=== PATIENT | male | born 1960 | race Two or more races ===

== ENCOUNTER → 2016-04-19 | Outpatient (CLI) | payer OTHER ==
--- NOTE | 2016-04-19 18:53 | DX ---
Lumbar spine, 4 views , including lateral flexion and extension views. 04/19/2016 History: Back pain. Comparison examination: MRI lumbar spine August 06, 2015. Findings: Features of degenerative disk disease with intervertebral disk height loss are identified a t L3-L4, L4-L5, L5-S1. No fracture or subluxation. No features of instability on lateral flexion and extension positioning. Impression: Lower lumbar degenerative disk disease.
== END ==
LOC: FIMAGING 09:45
PROVIDERS: ATTEND Neurological Surgery
DX: M51.36 Other intervertebral disc degeneration, lumbar region (principal)

== ENCOUNTER → 2016-12-05 | Outpatient (CLI) | payer OTHER | LOC: FIMAGING 17:03 | PROVIDERS: ATTEND Physician Assistant Surgical | DX: M79.662 Pain in left lower leg (principal); M51.26 Other intervertebral disc displacement, lumbar region; M43.26 Fusion of spine, lumbar region ==

== ENCOUNTER 2017-11-09 12:52 | Emergency (ER) | payer OTHER ==
--- NOTE | 2017-11-09 13:08 | EDPHY ---
H & P Time Seen by Provider: 11/09/17 13:03 HPI/ROS: Chief Complaint: Shortness of breath HPI: 57-year-old male began having shortness of breath last night. Patient states that he was recently seen by his doctor for left foot swelling earlier this week. They were concerned about a possible DV T. He is scheduled for an ultrasound later today. Last night he had a sudden onset of shortness of breath. No cough. No fevers or chills. Some pain with deep inspiration. No family history of DVT in the past. He does have a history of hyperlipidemia. He does smoke. No recent travel. ROS: 10 systems were reviewed and were negative except those elements noted in the HPI. PMH: Hypertension Social History: Positive smoking, positive alcohol, no recreational drug use Family History: Diabetes Physical Exam: Vital signs: Heart rate 142, blood pressure 115/99, respiratory rate 30, oxygen saturation 68% on room air, temperature Gen: Awake, Alert, significant respiratory distress HEENT: Nose: no rhinorrhea Eyes: PERRLA, EOMI Mouth: Moist mucosa Neck: Supple, no JVD Chest: nontender, lungs clear to auscultation Heart: S1, S2 normal, no murmur Abd: Soft, non-tender, no guarding Back: no CVA tenderness, no midline tenderness Ext: Mild left foot edema, non-tender Skin: no rash Neuro: CN II-XII intact, Sensation grossly intact, Strength 5/5 in bilateral upper and lower extremities - Social History Smoking Status: Heavy smoker Constitutional: Initial Vital Signs Temperature (C) 36.9 C 11/09/17 12:55 Heart Rate 147 H 11/09/17 12:55 Respiratory Rate 45 H 11/09/17 12:55 Blood Pressure 162/81 H 11/09/17 12:55 O2 Sat (%) 68 L 11/09/17 12:55 O2 Delivery Mode Non-Rebreather Mask O2 (L/minute) 15 Allergies/Adverse Reactions: No Known Allergies Allergy (Unverified 11/09/17 13:01) Home Medications: Medication Instructions Recorded Gabapentin 11/09/17 Lisinopril 11/09/17 Medical Decision Making - Diagnostics EKG Interpretation: ECG time 12:59 p.m., sinus tachycardia with a rate of 142, normal axis, normal intervals, findings consistent with left atrial enlargement, there are Q-waves from V1 through V4 consistent with an age indeterminate anteroseptal infarct. There are no acute ST or T-wave changes. Imaging Results: Imaging Impressions Chest/Thorax CTA 11/09/17 13:04 Impression: 1. No evidence of thrombopulmonary embolic disease. 2. Diffuse pneumonitis may be manifestation of viral pneumonitis, exposure, or drug toxicity. Recommend follow-up noncontrast chest CT in 6 months to assure resolution of nodular opacity left lung apex. 3. Suspect reactive lymphadenopathy throughout the mediastinum and pulmonary sonia. 4. Three-vessel calcified coronary plaque. Findings discussed with Emergency Department physician, Souleymane Hager MD, on 11/09/2017, 13:44. ED Course/Re-evaluation: 57-year-old male presenting with acute onset of shortness of breath last night tachycardia hypoxemia with leg pain and swelling currently being worked up for DV T. Will get a CT scan of his chest to rule out PE at this time. Oxygen saturations have come up on a non-rebreather. He is not febrile at this time. CT scan results noted. No evidence of P E. Does have a diffuse pneumonitis. White count is 15. He does meet SIRS criteria. I have ordered a lactic acid. I have also ordered blood cultures and 1 g of ceftriaxone I V. The patient is requesting to be transferred to [facility]. I have paged the hospitalist at [facility]. Case discussed with Dr. Fuchs, hospitalist at [facility]. He is accept the patient transfer to the ICU. Critical Care Time: I spent a total of 35 minutes of critical care time in obtaining history, performing a physical exam, bedside monitoring of interventions, collecting and interpreting tests and discussion with consultants but not including time spent performing procedures. - Data Points Laboratory Results: 11/09/17 11/09/17 11/09/17 13:50 13:47 13:05 POC Sodium 123 mEq/L L mEq/L (135-145) POC Potassium 4.5 mEq/L mEq/L (3.3-5.0) POC Chloride 101.0 mEq/L mEq/L (97-110) POC Total CO2 17 mEq/L L mEq/L (22-31) POC BUN 11 mg/dL mg/dL (7-23) POC Creatinine 0.9 mg/dL mg/dL (0.7-1.3) POC Glucose 137 mg/dL H mg/dL (70-100) POC Lactic Acid Aditya 1.0 mmol/L mmol/L (0.7-2.1) POC Calcium 8.5 mg/dL mg/dL (8.5-10.4) POC Total Bilirubin 1.4 mg/dL mg/dL (0.1-1.4) POC AST 58 IU/L IU/L (17-59) POC ALT 50 IU/L IU/L (21-72) POC Alk Phosphatase 86 IU/L IU/L (38-126) POC Troponin I 0.03 ng/mL ng/mL (0.00-0.08) POC Total Protein 7.7 g/dL g/dL (6.3-8.2) POC Albumin 3.8 g/dL g/dL (3.5-5.0) Medications Given: Discontinued Medications Ceftriaxone Sodium/Dextrose (Rocephin 1 Gm (Premix)) 50 mls @ 100 mls/hr IV EDNOW ONE PRN Reason: Protocol Stop: 11/09/17 14:18 Last Admin: 11/09/17 14:02 Dose: 50 mls Sodium Chloride (Ns) 1,000 mls @ 0 mls/hr IV EDNOW ONE; Wide Open PRN Reason: Protocol Stop: 11/09/17 13:55 Last Admin: 11/09/17 13:55 Dose: 1,000 mls Point of Care Test Results: CBC CBC Collection Date 11/09/17 CBC Collection Time 13:01 WBC 15.8 RBC 4.65 HGB 14.6 HCT 42.4 PLT 152 Neut # 13.8 Neut 87.7 LYMPH # 1.2 LYMPH 7.5 Other WBC # 0.8 Other WBC 4.8 MCV 91.2 Chemistry 11/09/17 11/09/17 13:47 13:05 POC Sodium 123 mEq/L L mEq/L (135-145) POC Potassium 4.5 mEq/L mEq/L (3.3-5.0) POC Chloride 101.0 mEq/L mEq/L (97-110) POC Total CO2 17 mEq/L L mEq/L (22-31) POC BUN 11 mg/dL mg/dL (7-23) POC Creatinine 0.9 mg/dL mg/dL (0.7-1.3) POC Glucose 137 mg/dL H mg/dL (70-100) POC Calcium 8.5 mg/dL mg/dL (8.5-10.4) POC Total Bilirubin 1.4 mg/dL mg/dL (0.1-1.4) POC AST 58 IU/L IU/L (17-59) POC ALT 50 IU/L IU/L (21-72) POC Alk Phosphatase 86 IU/L IU/L (38-126) POC Troponin I 0.03 ng/mL ng/mL (0.00-0.08) POC Total Protein 7.7 g/dL g/dL (6.3-8.2) POC Albumin 3.8 g/dL g/dL (3.5-5.0) Blood Gas/Lactic Acid-Venous 11/09/17 13:50 POC Lactic Acid Aditya 1.0 mmol/L mmol/L (0.7-2.1) Departure - Departure Disposition: [facility] Clinical Impression: Pneumonitis, Hypoxemia, Tachycardia Condition: Serious Referrals: Ryan Lee MD [Primary Care Provider] - As per Instructions
[2017-11-09] MEDS ORDERED: IOPAMIDOL (ISOVUE 370) 100 ML BTL IV ONE (13:13)
[2017-11-09] MEDS ORDERED: NS 1,000 ML IV ONE (13:54)
[2017-11-09 15:29] VITALS: BP 133/73
== END 2017-11-09 15:53 | disposition short-term general hospital (02) ==
LOC: CED 12:52
DX: J18.9 Pneumonia, unspecified organism (principal); R00.0 Tachycardia, unspecified; E78.5 Hyperlipidemia, unspecified; I10 Essential (primary) hypertension; F17.210 Nicotine dependence, cigarettes, uncomplicated
CPT/HCPCS: 71275-PO; 80053-PO; 83605-PO; 84484-PO; 96365; J0696; Q9967